=== PATIENT | female | born 1940 | race Two or more races ===

== ENCOUNTER 2020-09-10 10:09 | Inpatient (IN) | payer OTHER ==
[~2020-09-10] VITALS: Ht 165.1 cm; Wt 71.0 kg
[2020-09-10] MEDS ORDERED: SODIUM CHLORIDE 0.9% 500 ML IV ONE (10:30)
[2020-09-10 11:23] LABS: Basophils # (auto) 0.1 10 ^3/uL (0-0.2); Basophils % (auto) 0.8 % (0.0-2.0); Eosinophils # (auto) 0.1 10 ^3/uL (0-0.8); Eosinophils % (auto) 2.2 % (0.0-7.0); Hematocrit 41.4 % (36.0-46.0); Hemoglobin 14.3 g/dL (12.2-16.2); Lymphocytes # (auto) 1.2 10 ^3/uL (0.4-5.4); Lymphocytes % (auto) 19.3 % (10.0-50.0); Mean Corpuscular Hemoglobin 32.4 pg (28.0-32.0); Mean Corpuscular Hgb Conc. 34.5 g/dL (32.0-36.0); Mean Corpuscular Volume 93.9 fL (80.0-100.0); Monocytes # (auto) 0.6 10 ^3/uL (0-1.3); Monocytes % (auto) 8.8 % (0.0-12.0); Neutrophils # (auto) 4.4 10 ^3/uL (1.6-8.6); Neutrophils % (auto) 68.9 % (37.0-80.0); Nucleated Red Blood Cells % 0.1 %; Platelet Count (auto) 201 10^3/uL (140-450); Red Blood Cells 4.41 10^6/uL (4.0-5.20); Red Cell Distribution Width 13.3 % (11.8-14.3); White Blood Cell 6.3 10^3/uL (4.4-10.8)
[2020-09-10 11:37] LABS: INR 0.97 (0.9-1.15); Partial Thromboplastin Time 26.7 sec (23.0-31.2)
[2020-09-10] MEDS ORDERED: MORPHINE SULF INJ 2 MG/ML SYRINGE 1ML IV PRN ×3 (11:45→12:15)
[2020-09-10 11:46] LABS: Albumin 3.2 g/dL (3.4-5.0); Calcium 8.9 mg/dL (8.5-10.1); Potassium 4.2 mmol/L (3.5-5.1)
[2020-09-10 11:53] LABS: BUN/Creatinine Ratio 23.4; Bilirubin, Total 0.6 mg/dL (0.2-1.0); Total Protein 6.7 g/dL (6.4-8.2)
[2020-09-10] MEDS ORDERED: NITROGLYCERIN 0.4 MG SL TAB SL PRN (12:15)
[2020-09-10] MEDS ORDERED: ONDANSETRON HCL 4 MG/2 ML VIAL IV PRN (12:15)
[2020-09-10] MEDS ORDERED: ALPRAZolam 0.5 MG TAB PO PRN (12:15)
[2020-09-10] MEDS ORDERED: GABAPENTIN 400 MG CAP PO ONE (13:30)
[2020-09-10] MEDS ORDERED: MELA3TAB27 PO (19:19)
[2020-09-10] MEDS ORDERED: ALPR0.25 PO (19:19)
[2020-09-10] MEDS ORDERED: GABA100C9 PO (19:19)
[2020-09-10] MEDS ORDERED: NIF10C GT (19:21)
[2020-09-10] MEDS: GABAPENTIN 400 MG CAP PO SCH (21:55)
[2020-09-10 22:07] VITALS: BP 135/79
[2020-09-11] VITALS (14 sets, daily range): BP systolic 108–145; BP diastolic 47–71
[2020-09-11] MEDS ORDERED: ceFAZolin 1GM/50ML 100 ML IV ONE (07:49)
[2020-09-11] MEDS ORDERED: ONDANSETRON HCL 4 MG/2 ML VIAL ONE (08:10)
[2020-09-11] MEDS ORDERED: MIDAZOLAM HCL 1MG/1ML-2 ML VIAL ONE (08:10)
[2020-09-11] MEDS ORDERED: BUPIVACAINE/DEXTROSE MPF 0.75% 2 ML AMP IT ONE (08:10)
[2020-09-11] MEDS ORDERED: PROPOFOL 10 MG/ML 20 ML IV ONE (08:10)
[2020-09-11] MEDS ORDERED: fentaNYL CITRATE 100 MCG/2 ML VL ONE (08:10)
[2020-09-11] MEDS ORDERED: SODIUM CHLORIDE LOCK 10 ML ONE (08:10)
[2020-09-11] MEDS ORDERED: MORPHINE SULF(PF) 0.5MG/ML 10ML VIAL ONE (08:10)
[2020-09-11] MEDS ORDERED: EPINEPHrine HCL 1 MG/1 ML AMP ONE (08:10)
[2020-09-11] MEDS ORDERED: BUPIVACAINE 0.25% INJ 50ML VIAL ONE (08:28)
[2020-09-11] MEDS ORDERED: TETRACAINE 1% INJ 2 ML VIAL IJ ONE (08:33)
[2020-09-11] MEDS: NIFEdipine ER 30 MG TAB PO SCH (10:00)
[2020-09-11] MEDS: GABAPENTIN 400 MG CAP PO SCH ×2 (10:00→21:00)
[2020-09-11] MEDS ORDERED: HYDROmorphone HCL 2 MG/ML VL IV PRN ×2 (10:45→12:15)
[2020-09-11] MEDS ORDERED: NALOXONE HCL 0.4 MG/ML VIAL IV PRN (10:45)
[2020-09-11] MEDS ORDERED: diphenhdrAMINE HCL 50 MG/1 ML VL IV PRN (10:45)
[2020-09-11] MEDS ORDERED: MORPHINE SULFATE 4 MG/ML SYR/VIAL IV PRN (10:45)
[2020-09-11] MEDS ORDERED: ONDANSETRON HCL 4 MG/2 ML VIAL IV PRN ×2 (10:45→12:15)
[2020-09-11] MEDS ORDERED: HYDROmorphone HCL 2 MG/ML VL ONE (10:50)
[2020-09-11] MEDS ORDERED: HYDROcodone-ACET 5/325MG TAB PO PRN (12:15)
[2020-09-11] MEDS ORDERED: ceFAZolin 1GM/50ML 50 ML IV SCH (12:15)
[2020-09-11] MEDS: LACTATED RINGER'S 1,000 ML IV SCH ×2 (12:59→21:00)
[2020-09-11] MEDS: ACETAMINOPHEN 325 MG TAB PO PRN ×2 (16:39→23:51)
[2020-09-11] MEDS: DOCUSATE SOD 100 MG CAP PO SCH (21:00)
[2020-09-12] VITALS (13 sets, daily range): BP systolic 105–126; BP diastolic 46–55
[2020-09-12] MEDS: ACETAMINOPHEN 325 MG TAB PO PRN (06:26)
[2020-09-12] MEDS: LACTATED RINGER'S 1,000 ML IV SCH ×2 (08:15→17:46)
[2020-09-12] MEDS: DOCUSATE SOD 100 MG CAP PO SCH (09:28)
[2020-09-12] MEDS: GABAPENTIN 400 MG CAP PO SCH (09:29)
[2020-09-12] MEDS: NIFEdipine ER 30 MG TAB PO SCH (09:29)
[2020-09-12] MEDS ORDERED: HYDR-4902 PO (16:51)
[2020-09-12] MEDS ORDERED: CEPH-322 PO (16:51)
[2020-09-12] MEDS ORDERED: ASPI-231 PO (16:51)
== END 2020-09-12 19:05 | disposition home health service (06) | DRG 517 ==
LOC: ER 10:09 → OVERFLOW 11:37 → WEST WING 18:30 → TELE-WESTW 23:58
PROVIDERS: ADMIT Orthopaedic Surgery Sports Medicine; ATTEND Orthopaedic Surgery Sports Medicine
PROC: BQ1 Imaging, Non-Axial Lower Bones, Fluoroscopy (ICD-10-PCS; 2020-09-11)
PROC: 0QSD04Z Reposition Right Patella with Internal Fixation Device, Open Approach (ICD-10-PCS; principal; 2020-09-11 08:50)
DX: S82.031A Displaced transverse fracture of right patella, initial encounter for closed fracture (principal); W01.0XXA Fall on same level from slipping, tripping and stumbling without subsequent striking against object, initial encounter; I10 Essential (primary) hypertension; M81.0 Age-related osteoporosis without current pathological fracture; Z20.822 Contact with and (suspected) exposure to COVID-19; Y93.89 Activity, other specified; Y92.89 Other specified places as the place of occurrence of the external cause; Y99.8 Other external cause status
CPT/HCPCS: 36415; 71046; 73560; 76000; 80053; 85025; 85610; 85730; 86850; 86900; 86901; 87426; 93005; 93306; 96360; 97116; 97163; G0378; J0171; J0690; J2250; J2405; J2704; J3490